=== PATIENT | female | born 1990 | race Asian ===

== ENCOUNTER 2019-08-08 21:42 | Emergency (ER) | payer OTHER ==
[~2019-08-08] VITALS: Ht 157.5 cm; Wt 70.3 kg
[2019-08-08 23:00] LABS: PLATELET COUNT 360 K/uL (152-353)
[2019-08-08 23:26] LABS: POTASSIUM 3.8 mmol/L (3.6-5.2)
[2019-08-09 02:28] VITALS: BP 122/76; TEMP 98.9
== END 2019-08-09 02:29 | disposition home or self-care (01) ==
LOC: ED 21:42
PROVIDERS: Emergency Medicine
DX: R10.31 Right lower quadrant pain (principal); N39.0 Urinary tract infection, site not specified; N12 Tubulo-interstitial nephritis, not specified as acute or chronic
CPT/HCPCS: 80053; 81000; 81025; 82150; 83690; 85027; 87088; 96365; 96374; 96375; 99284; 99285; J0696; J1885; Q9963